=== PATIENT | female | born 1950 | race Caucasian/White ===

== ENCOUNTER 2019-04-24 13:48 | Emergency (ER) | payer MEDICARE, OTHER ==
[~2019-04-24] VITALS: Ht 170.2 cm; Wt 100.0 kg
[~2019-04-24 13:48] MED LIST: ASPI81TA52 PO; ATOR10TA PO; BUPR150T8 PO; CITA20TA28 PO; DOCU250C21 PO; METO25TA6 PO; OMEP40CA13 PO; TIOT18CA3
[2019-04-24] MEDS ORDERED: pantoprazole 40 MG vial IV ONE (14:35)
[2019-04-24] MEDS ORDERED: normal saline 1000ML IV soln IVB ONE (14:35)
[2019-04-24] MEDS ORDERED: famotidine/PF 10 mg/ml inj IV ONE (14:35)
[2019-04-24] MEDS ORDERED: ondansetron/PF 4mg/2ml inj IV ONE (14:35)
[2019-04-24 15:18] LABS: BASOPHILS # (AUTO) 0.2 X10'3 (0-0.2); HEMATOCRIT 25.6 % (35.0-45.0); HEMOGLOBIN 8.6 g/dl (12.0-16.0); LYMPHOCYTES # (AUTO) 2.7 X10'3 (1.1-4.8); MEAN CORPUSCULAR HEMOGLOBIN 30.8 PG (27.0-31.0); MEAN CORPUSCULAR HGB CONC 33.5 g/dL (33.0-36.5); MEAN PLATELET VOLUME 7.8 FL (7.4-10.4)
[2019-04-24 15:20] LABS: BASOPHILS % (AUTO) 0.9 % (0-1); EOSINOPHILS # (AUTO) 0.2 X10'3 (0-0.9); EOSINOPHILS % (AUTO) 1.5 % (0-6); LYMPHOCYTES % (AUTO) 16.8 % (21-51); MONOCYTES # (AUTO) 0.8 X10'3 (0-0.9); MONOCYTES % (AUTO) 5.2 % (2-12); NEUTROPHILS # (AUTO) 12.3 X10'3 (1.8-7.7); NEUTROPHILS % (AUTO) 75.6 % (42-75); PLATELET COUNT 332 X10'3 (140-440); RED BLOOD COUNT 2.79 X10'6 (4.20-5.60); RED CELL DISTRIBUTION WIDTH 14.8 % (11.5-14.5); WHITE BLOOD COUNT 16.2 X10'3 (4.5-11.0)
[2019-04-24 15:30] LABS: ALANINE AMINOTRANSFERASE 17 U/L (12-78); ALBUMIN 2.7 G/DL (3.4-5.0); ALBUMIN/GLOBULIN RATIO 0.7 (1.1-1.5); ALKALINE PHOSPHATASE 82 IU/L (46-116); ANION GAP 3 (8-16); ASPARTATE AMINO TRANSFERASE 14 U/L (10-37); BILIRUBIN,TOTAL 0.4 MG/DL (0.1-1.0); BLOOD UREA NITROGEN 11 MG/DL (7-18); BUN/CREATININE RATIO 13.3 (6.6-38.0); CALCIUM 8.7 MG/DL (8.5-10.1); CHLORIDE 105 MMOL/L (99-107); CREATININE 0.83 MG/DL (0.40-0.90); GLUCOSE 131 MG/DL (70-104); POTASSIUM 4.8 MMOL/L (3.5-5.1); SODIUM 140 MMOL/L (135-145); TOTAL CARBON DIOXIDE 31.6 MMOL/L (24-32); TOTAL PROTEIN 6.4 G/DL (6.4-8.2); eGFR 68 ML/MIN
[2019-04-24] MEDS ORDERED: aspirin 81mg tab.chew PO ONE (16:20)
[2019-04-24] MEDS ORDERED: HYDR-4383 PO (16:23)
[2019-04-24] MEDS ORDERED: ATOR10TA PO (16:23)
[2019-04-24] MEDS ORDERED: METO25TA6 PO (16:23)
[2019-04-24] MEDS ORDERED: ALBU18HF2 INH (16:32)
[2019-04-24] MEDS ORDERED: BENA20TA82 PO (16:33)
[2019-04-24] MEDS ORDERED: MELO-100 PO (16:38)
[2019-04-24] MEDS ORDERED: BUPR150T6 PO (16:57)
[2019-04-24] MEDS ORDERED: NITR0.4T48 PO (17:02)
[2019-04-24 17:17] VITALS: BP 107/69
--- NOTE | 2019-04-24 17:21 | NUR ---
Dr. Hsieh spoke with pts. Batch Tester and pt will go home if her repeat trop. is neg.
--- NOTE | 2019-04-24 17:32 | NUR ---
DRAW [address] OVALLE PT PROBABLY WILL BE ABLE TO GO HOME IF TROP IS NORMAL
--- NOTE | 2019-04-24 17:45 | NUR ---
PT STATES SHE ALREADY TOOK HER ASPIRIN TODAY . DECLINED ASA MEDICATION ORDER.
[2019-04-24] MEDS ORDERED: ONDA4TAB6 PO (18:01)
== END 2019-04-24 18:24 | disposition home or self-care (01) ==
LOC: ER 13:49
DX: L76.32 Postprocedural hematoma of skin and subcutaneous tissue following other procedure (principal); K29.70 Gastritis, unspecified, without bleeding; R11.2 Nausea with vomiting, unspecified; R79.89 Other specified abnormal findings of blood chemistry; I25.10 Atherosclerotic heart disease of native coronary artery without angina pectoris; J44.9 Chronic obstructive pulmonary disease, unspecified; Z88.8 Allergy status to other drugs, medicaments and biological substances; Z95.1 Presence of aortocoronary bypass graft; Z79.82 Long term (current) use of aspirin; Z79.899 Other long term (current) drug therapy
CPT/HCPCS: 36415; 71045; 80053; 83735; 83880; 84484; 85025; 93005; 96361; 96374; 96375; 99285; C9113; J2405; J3490; J7030

== ENCOUNTER 2019-04-26 13:44 | Emergency (ER) | payer MEDICARE, OTHER ==
[~2019-04-26] VITALS: Ht 170.2 cm; Wt 95.0 kg
[~2019-04-26 13:44] MED LIST changes: +ALBU18HF2 INH; +BENA20TA82 PO; +BUPR150T6 PO; -BUPR150T8 PO; +HYDR-4383 PO; +MELO-100 PO; +NITR0.4T48 PO; +ONDA4TAB6 PO; -TIOT18CA3
[2019-04-26 14:16] LABS: BASOPHILS % (AUTO) 0.2 % (0-1); EOSINOPHILS # (AUTO) 0.4 X10'3 (0-0.9); EOSINOPHILS % (AUTO) 2.8 % (0-6); HEMATOCRIT 24.8 % (35.0-45.0); HEMOGLOBIN 7.9 g/dl (12.0-16.0); LYMPHOCYTES # (AUTO) 2.1 X10'3 (1.1-4.8); LYMPHOCYTES % (AUTO) 14.6 % (21-51); MEAN CORPUSCULAR HEMOGLOBIN 29.8 PG (27.0-31.0); MEAN CORPUSCULAR VOLUME 93.1 FL (78-98); MEAN PLATELET VOLUME 6.8 FL (7.4-10.4); MONOCYTES # (AUTO) 1.2 X10'3 (0-0.9); MONOCYTES % (AUTO) 8.7 % (2-12); NEUTROPHILS # (AUTO) 10.5 X10'3 (1.8-7.7); NEUTROPHILS % (AUTO) 73.7 % (42-75); PLATELET COUNT 423 X10'3 (140-440); RED BLOOD COUNT 2.67 X10'6 (4.20-5.60); WHITE BLOOD COUNT 14.2 X10'3 (4.5-11.0)
[2019-04-26 14:34] LABS: ALANINE AMINOTRANSFERASE 34 U/L (12-78); ALBUMIN 2.6 G/DL (3.4-5.0); ALBUMIN/GLOBULIN RATIO 0.6 (1.1-1.5); ALKALINE PHOSPHATASE 106 IU/L (46-116); ANION GAP 2 (8-16); ASPARTATE AMINO TRANSFERASE 22 U/L (10-37); BILIRUBIN,TOTAL 0.3 MG/DL (0.1-1.0); BLOOD UREA NITROGEN 8 MG/DL (7-18); BUN/CREATININE RATIO 10.4 (6.6-38.0); CHLORIDE 105 MMOL/L (99-107); CREATININE 0.77 MG/DL (0.40-0.90); GLUCOSE 97 MG/DL (70-104); POTASSIUM 4.5 MMOL/L (3.5-5.1); SODIUM 140 MMOL/L (135-145); TOTAL CARBON DIOXIDE 33.3 MMOL/L (24-32); TOTAL PROTEIN 6.7 G/DL (6.4-8.2); eGFR 75 ML/MIN
--- NOTE | 2019-04-26 16:03 | NUR ---
OXYGEN DELIVERY ARRANGED BY DC AWARD MACHINE OPERATOR. TO BE DELIVERED BY [facility] TO BEDSIDE. I DISCUSSED WITH PATIENT AND DAUGHTER, THAT THEY NEED TO FOLLOW UP WITH PCP TEE. DAUGHTER WAS CALLING JENIFER TAYLOR TO SCHEDULE APPOINTMENT. PATIENT ALSO HAS SCHEDULED APPOINTMENT WITH DR LINN ON 05/07, AND DR GOODWIN ON 05/11.
[2019-04-26 16:43] VITALS: BP 106/75
[2019-04-26] MEDS ORDERED: ipratropium/albuterol 3ml nebule NEB ONE (16:55)
== END 2019-04-26 17:40 | disposition home or self-care (01) ==
LOC: ER 13:44
DX: J44.9 Chronic obstructive pulmonary disease, unspecified (principal); I25.10 Atherosclerotic heart disease of native coronary artery without angina pectoris; F17.200 Nicotine dependence, unspecified, uncomplicated; Z95.1 Presence of aortocoronary bypass graft; Z88.8 Allergy status to other drugs, medicaments and biological substances; Z79.82 Long term (current) use of aspirin; Z79.899 Other long term (current) drug therapy
CPT/HCPCS: 36415; 71045; 80053; 84484; 85025; 93005; 99285

== ENCOUNTER 2019-05-31 11:12 | Inpatient (IN) | payer MEDICARE, OTHER ==
[~2019-05-31] VITALS: Ht 170.2 cm; Wt 86.8 kg
[~2019-05-31 11:12] MED LIST changes: +APIX5TAB3 PO; +CARCD120C PO; +LACT1CAP26 PO; +LEVO500T2 PO; -ONDA4TAB6 PO; +PRED20TA PO
[2019-05-31 11:46] LABS: BASOPHILS # (AUTO) 0.1 X10'3 (0-0.2); EOSINOPHILS # (AUTO) 0.4 X10'3 (0-0.9); HEMOGLOBIN 10.8 g/dl (12.0-16.0); LYMPHOCYTES # (AUTO) 2.2 X10'3 (1.1-4.8); MEAN PLATELET VOLUME 7.8 FL (7.4-10.4); NEUTROPHILS # (AUTO) 6.3 X10'3 (1.8-7.7)
[2019-05-31 11:47] LABS: BASOPHILS % (AUTO) 1.2 % (0-1); EOSINOPHILS % (AUTO) 3.6 % (0-6); HEMATOCRIT 33.4 % (35.0-45.0); LYMPHOCYTES % (AUTO) 22.4 % (21-51); MEAN CORPUSCULAR HEMOGLOBIN 29.3 PG (27.0-31.0); MEAN CORPUSCULAR HGB CONC 32.4 g/dL (33.0-36.5); MEAN CORPUSCULAR VOLUME 90.5 FL (78-98); MONOCYTES # (AUTO) 0.8 X10'3 (0-0.9); NEUTROPHILS % (AUTO) 64.8 % (42-75); PLATELET COUNT 618 X10'3 (140-440); RED CELL DISTRIBUTION WIDTH 16.5 % (11.5-14.5); WHITE BLOOD COUNT 9.7 X10'3 (4.5-11.0)
[2019-05-31] MEDS ORDERED: normal saline 1000ml 1,000 ML IV ONE (11:56)
[2019-05-31 12:01] LABS: PARTIAL THROMBOPLASTIN TIME 25 SECONDS (22-32)
[2019-05-31 12:02] LABS: ALANINE AMINOTRANSFERASE 18 U/L (12-78); ALBUMIN 2.6 G/DL (3.4-5.0); ALBUMIN/GLOBULIN RATIO 0.5 (1.1-1.5); ALKALINE PHOSPHATASE 136 IU/L (46-116); ANION GAP 5 (8-16); ASPARTATE AMINO TRANSFERASE 16 U/L (10-37); BILIRUBIN,TOTAL 0.2 MG/DL (0.1-1.0); BLOOD UREA NITROGEN 8 MG/DL (7-18); BUN/CREATININE RATIO 10.7 (6.6-38.0); C-REACTIVE PROTEIN 5.54 MG/DL (0.0-0.5); CALCIUM 8.6 MG/DL (8.5-10.1); CHLORIDE 103 MMOL/L (99-107); CREATININE 0.75 MG/DL (0.40-0.90); GLUCOSE 111 MG/DL (70-104); MAGNESIUM 1.9 MG/DL (1.5-2.4); SODIUM 140 MMOL/L (135-145); TOTAL CARBON DIOXIDE 32.2 MMOL/L (24-32); TOTAL PROTEIN 7.4 G/DL (6.4-8.2); eGFR 77 ML/MIN
[2019-05-31] MEDS ORDERED: acetaminophen 325mg tablet PO ONE (12:20)
--- NOTE | 2019-05-31 13:00 | NUR ---
DAUGHTER IN[place] CALLED THEY ARE WORRIED ABOUT CONFUSION AND HALLICINATING SINCE THE SURGERY. REQUESTED HEAD CT. WE ARE RUNNING TESTS AT THIS TIME. ALESSIO [phone] ENDER (SON) [phone]
[2019-05-31] MEDS ORDERED: iohexol 300mg/ml 100ml inj. ONE (13:21)
--- NOTE | 2019-05-31 13:23 | NUR ---
STERNAL WOUND CULTURE OBTAINED
[2019-05-31 13:30] LABS: CLARITY,URINE SLIGHTLY CLOUDY (Clear); COLOR,URINE YELLOW (Yellow); GLUCOSE, URINE NEGATIVE (Neg); KETONES,URINE NEGATIVE (Neg); LEUKOCYTE ESTERASE ,URINE NEGATIVE (Neg); NITRITES, URINE NEGATIVE (Neg); OCCULT BLOOD,URINE LARGE (Neg); PROTEIN,URINE NEGATIVE (Neg); UROBILINOGEN,URINE 0.2 E.U/dL (0.2-1.0)
[2019-05-31 13:31] LABS: UA COLLECTION TYPE STRAIGHT CATH
[2019-05-31 13:36] LABS: SQUAMOUS EPITHELIAL CELL,UR MANY /LPF (FEW)
[2019-05-31 13:37] LABS: MUCUS STRANDS MODERATE /LPF (Neg)
[2019-05-31 13:38] LABS: BACTERIA,URINE 1+ /HPF (Neg); RBC,URINE 50-100 /HPF (0-2); WBC,URINE 0-4 /HPF (0-4)
[2019-05-31] MEDS ORDERED: vancomycin/NS 1 GM ADD-VANTAGE 250 ML IV ONE (15:10)
[2019-05-31] MEDS ORDERED: morphine 2 MG/ML inj. syringe IV PRN ×2 (15:20)
[2019-05-31] MEDS ORDERED: mag hydrox/Alum hydrox/simeth 30ml oral suspension PO PRN (15:20)
[2019-05-31] MEDS ORDERED: ondansetron/PF 4mg/2ml inj IV PRN (15:20)
[2019-05-31] MEDS ORDERED: acetaminophen 325mg tablet PO PRN (15:20)
[2019-05-31] MEDS ORDERED: magnesium hydroxide 30ml (MOM) UD suspension PO PRN (15:20)
[2019-05-31] MEDS: normal saline 1000ml 1,000 ML IV SCH (16:10)
[2019-05-31] MEDS: VANCOmycin 1250MG/NS 250ml Bag 250 ML IV SCH (16:10)
--- NOTE | 2019-05-31 18:39 | NUR ---
SPOKE WITH PT FAMILY MEMBER ENDER REGARDING PT HOME MEDICATION LIST FOR RECONCILLIATION. PER FAMILY, NO NEW RX HAVE CHANGED AND 2 NEW MEDS ARE LISTED IN THE EXTERNAL MED REC. PT FAMILY CONFIRMED THESE ARE ACCURATE. WILL COMPLETE MED REC BASED OFF OF FAMILY INFORMATION.
[2019-05-31] MEDS ORDERED: HCTZ25T PO (18:41)
[2019-05-31] MEDS ORDERED: METO-411 PO (18:41)
[2019-05-31 19:30] VITALS: BP 142/82
[2019-05-31] MEDS: heparin, porcine 5000 units/ml vial SQ SCH (20:33)
--- NOTE | 2019-05-31 21:24 | NUR ---
Report given to Jessica, christopher, surgical. I reiterated the DNR order with Pt and she reproted to me that she wants full resuscitation and stated she thought that the doctor (Dr. Goodson) was talking about her being kept alive (feeding tube/ventilator) for a length of time. States if her heart were to stop she wants us to save her life. I spoke with Dr. Hsieh about this and he will visit the Pt later. Prudent updated of this situation.
[2019-05-31 23:00] VITALS: BP 157/92
[2019-06-01] VITALS (7 sets, daily range): BP systolic 133–165; BP diastolic 55–94
[2019-06-01] MEDS: normal saline 1000ml 1,000 ML IV SCH ×3 (01:32→21:20)
[2019-06-01] MEDS: VANCOmycin 1250MG/NS 250ml Bag 250 ML IV SCH ×2 (05:48→16:04)
--- NOTE | 2019-06-01 06:06 | NUR ---
Patient in room PCU 3014. I have received report from Melissa HA / ER and had the opportunity to ask questions and assume patient care. Addendum: 06/01/19 at 0607 by Anshu Ortiz RN Amend time/date to 05/30
[2019-06-01 06:08] LABS: BASOPHILS % (AUTO) 0.5 % (0-1); EOSINOPHILS # (AUTO) 0.3 X10'3 (0-0.9); EOSINOPHILS % (AUTO) 3.7 % (0-6); HEMATOCRIT 30.1 % (35.0-45.0); HEMOGLOBIN 9.6 g/dl (12.0-16.0); LYMPHOCYTES # (AUTO) 1.6 X10'3 (1.1-4.8); LYMPHOCYTES % (AUTO) 20.1 % (21-51); MEAN CORPUSCULAR HEMOGLOBIN 28.9 PG (27.0-31.0); MEAN CORPUSCULAR VOLUME 90.2 FL (78-98); MEAN PLATELET VOLUME 7.8 FL (7.4-10.4); MONOCYTES # (AUTO) 0.8 X10'3 (0-0.9); MONOCYTES % (AUTO) 10.3 % (2-12); NEUTROPHILS # (AUTO) 5.2 X10'3 (1.8-7.7); NEUTROPHILS % (AUTO) 65.4 % (42-75); PLATELET COUNT 604 X10'3 (140-440); RED BLOOD COUNT 3.34 X10'6 (4.20-5.60); RED CELL DISTRIBUTION WIDTH 17.1 % (11.5-14.5)
--- NOTE | 2019-06-01 06:13 | NUR ---
Problems reprioritized. Patient report given, questions answered & plan of care reviewed with Yun HA.
--- NOTE | 2019-06-01 06:15 | NUR ---
Patient in room PCU 3014A. I have received report from Beka HA and had the opportunity to ask questions and assume patient care. Patient laying in bed, eyes closed, no signs of distress, will continue to monitor.
[2019-06-01 06:23] LABS: ALBUMIN 2.1 G/DL (3.4-5.0); ANION GAP 4 (8-16); BLOOD UREA NITROGEN 9 MG/DL (7-18); BUN/CREATININE RATIO 13.6 (6.6-38.0); CALCIUM 8.8 MG/DL (8.5-10.1); CHLORIDE 106 MMOL/L (99-107); CREATININE 0.66 MG/DL (0.40-0.90); GLUCOSE 72 MG/DL (70-104); POTASSIUM 3.9 MMOL/L (3.5-5.1); SODIUM 145 MMOL/L (135-145); eGFR 89 ML/MIN
[2019-06-01] MEDS ORDERED: SIMV-45 PO (08:04)
[2019-06-01] MEDS: heparin, porcine 5000 units/ml vial SQ SCH (08:39)
[2019-06-01] MEDS ORDERED: nitroGLYCERIN 0.4mg SUBLingual tab SL PRN (09:00)
[2019-06-01] MEDS ORDERED: docusate sod 250mg capsule PO PRN (09:00)
[2019-06-01] MEDS: diltiazem CD 120mg capsule (once-daily) PO SCH (10:55)
[2019-06-01] MEDS: lisinopril 20mg tablet PO SCH (10:55)
--- NOTE | 2019-06-01 13:46 | NUR ---
PAGER ID: [phone] MESSAGE: Yun arrington [phone]. RE Param Pena 3014A. Pt c/o CP, 04/23, unclear if incisional or CP. EKG obtained, no STEMI by ED doc. VS stable: 146/77, HR 96, RR 18, SpO2 92% on 2L.
--- NOTE | 2019-06-01 14:23 | NUR ---
DM/malnutrition consult: Patient with A1c 6.9, DM education not warranted at this time. Pt admit with AMS, unable to give reliable hx, and confused at baseline per H&P. Pt with scaled wt hx 94-98 kg last month, current documented wt is 86.82 kg however is pt stated. Pt currently on a heart healthy diet documented with 100% PO intake first meal. Pt with no documented decrease in muscle strength or edema. Per ED report pt appears well developed and well nourished. Pt currently doesn't not meet criteria for malnutrition. Will continue to follow. Addendum: 06/01/19 at [address] Amended: Links added.
--- NOTE | 2019-06-01 16:10 | NUR ---
PAGER ID: [phone] MESSAGE: Yun x [phone]. RE Param Pena 3014A. Pt requesting Tylenol 325mg for pain. Can I have order for this? Also, do you want a wound care c/s for her? Thanks!
[2019-06-01] MEDS ORDERED: acetaminophen 325mg tablet PO PRN (16:15)
--- NOTE | 2019-06-01 18:16 | NUR ---
Problems reprioritized. Patient report given, questions answered & plan of care reviewed with Beka RN. Patient sitting up in bed, no signs of distress.
--- NOTE | 2019-06-01 18:17 | NUR ---
Problems reprioritized. Patient report given, questions answered & plan of care reviewed with Yun HA.
[2019-06-01] MEDS ORDERED: lisinopril 20mg tablet PO ONE (19:20)
[2019-06-01] MEDS: apixaban 5mg tablet PO SCH (19:42)
[2019-06-01] MEDS: lactobacillus rhamnosus 10,000 MMU CELLS/CAPSULE PO SCH (19:43)
[2019-06-02] VITALS (7 sets, daily range): BP systolic 149–178; BP diastolic 62–88
[2019-06-02] MEDS ORDERED: VANCOMYCIN LEVEL IV ONE (03:30)
[2019-06-02] MEDS: VANCOmycin 1250MG/NS 250ml Bag 250 ML IV SCH (03:32)
[2019-06-02 04:05] LABS: BASOPHILS # (AUTO) 0.1 X10'3 (0-0.2); BASOPHILS % (AUTO) 1.4 % (0-1); LYMPHOCYTES # (AUTO) 2.6 X10'3 (1.1-4.8); MEAN PLATELET VOLUME 7.9 FL (7.4-10.4); NEUTROPHILS # (AUTO) 4.7 X10'3 (1.8-7.7); WHITE BLOOD COUNT 8.7 X10'3 (4.5-11.0)
[2019-06-02 04:06] LABS: EOSINOPHILS # (AUTO) 0.4 X10'3 (0-0.9); EOSINOPHILS % (AUTO) 4.4 % (0-6); HEMATOCRIT 28.7 % (35.0-45.0); HEMOGLOBIN 9.1 g/dl (12.0-16.0); LYMPHOCYTES % (AUTO) 30.1 % (21-51); MEAN CORPUSCULAR HEMOGLOBIN 28.5 PG (27.0-31.0); MEAN CORPUSCULAR HGB CONC 31.5 g/dL (33.0-36.5); MEAN CORPUSCULAR VOLUME 90.4 FL (78-98); MONOCYTES # (AUTO) 0.9 X10'3 (0-0.9); MONOCYTES % (AUTO) 10.8 % (2-12); NEUTROPHILS % (AUTO) 53.3 % (42-75); PLATELET COUNT 648 X10'3 (140-440); RED BLOOD COUNT 3.18 X10'6 (4.20-5.60); RED CELL DISTRIBUTION WIDTH 17.3 % (11.5-14.5)
[2019-06-02 04:20] LABS: ANION GAP 3 (8-16); BLOOD UREA NITROGEN 13 MG/DL (7-18); BUN/CREATININE RATIO 18.8 (6.6-38.0); CHLORIDE 107 MMOL/L (99-107); CREATININE 0.69 MG/DL (0.40-0.90); GLUCOSE 105 MG/DL (70-104); POTASSIUM 3.5 MMOL/L (3.5-5.1); SODIUM 141 MMOL/L (135-145); TOTAL CARBON DIOXIDE 30.7 MMOL/L (24-32); VANCOMYCIN,TROUGH 13.9 UG/ML (6.0-14.0); eGFR 85 ML/MIN
--- NOTE | 2019-06-02 06:00 | NUR ---
3014A - Sharee Pena - Episode of HTN 172 SBP - want to admin 0800 AM lisinopril dose early? [phone] Beka AH Addendum: 06/02/19 at 0616 by Anshu Ortiz RN Discussed blood pressure with Dr. Hsieh - he said it is okay the lisinopril to be administered in 1-2 hours as it is currently scheduled.
--- NOTE | 2019-06-02 06:32 | NUR ---
Problems reprioritized. Patient report given, questions answered & plan of care reviewed with Haydee HA.
--- NOTE | 2019-06-02 06:40 | NUR ---
Patient in room PCU 3014. I have received report from Beka HA and had the opportunity to ask questions and assume patient care.
[2019-06-02] MEDS: normal saline 1000ml 1,000 ML IV SCH (07:20)
[2019-06-02] MEDS: aspirin 81mg tablet.DR PO SCH (07:51)
[2019-06-02] MEDS: diltiazem CD 120mg capsule (once-daily) PO SCH (07:52)
[2019-06-02] MEDS: lactobacillus rhamnosus 10,000 MMU CELLS/CAPSULE PO SCH ×2 (07:52→20:55)
[2019-06-02] MEDS: citalopram 20mg tablet PO SCH (07:52)
[2019-06-02] MEDS: buPROPion SR 150mg tablet PO SCH (07:52)
[2019-06-02] MEDS: pantoprazole 40mg Tablet.DR PO SCH (07:52)
[2019-06-02] MEDS: apixaban 5mg tablet PO SCH ×2 (07:53→20:55)
[2019-06-02] MEDS: lisinopril 20mg tablet PO SCH (07:53)
[2019-06-02] MEDS: ceFAZolin 1GM/D5W- ADD-VANTAGE 50 ML IV SCH ×2 (10:00→16:07)
--- NOTE | 2019-06-02 10:21 | NUR ---
received orders to start physical therapy per dr. etienne
--- NOTE | 2019-06-02 14:55 | NUR ---
physical therapy concerned if patient requires sternal precaution educations, clarified w/ dr. parikh and instructed to continue to remind patient but does not need physical therapy to focus on sternal precaution education.
[2019-06-02] MEDS ORDERED: VANCOMYCIN 1,500MG inj. 1,500 MG in normal saline 500ml IV soln 500 ML IV SCH (16:00)
--- NOTE | 2019-06-02 18:06 | NUR ---
Problems reprioritized. Patient report given, questions answered & plan of care reviewed with Beka RN.
[2019-06-03] VITALS (7 sets, daily range): BP systolic 125–171; BP diastolic 68–88
--- NOTE | 2019-06-03 02:36 | NUR ---
Page Sent - To Dr. Hsieh - he returned page and agreed to one time dose of lisinopril for current high blood pressure. promotional table spacer PAGER ID: [phone] MESSAGE: [id number] - Sharee Pena - HTN episode again like last night 167/84 want me to admin one time lisinopril 20mg like previous night? [phone] Beka HA
[2019-06-03] MEDS ORDERED: lisinopril 20mg tablet PO ONE (02:40)
[2019-06-03 06:10] LABS: BASOPHILS # (AUTO) 0.2 X10'3 (0-0.2); BASOPHILS % (AUTO) 2.4 % (0-1); EOSINOPHILS # (AUTO) 0.3 X10'3 (0-0.9); EOSINOPHILS % (AUTO) 3.5 % (0-6); HEMATOCRIT 28.7 % (35.0-45.0); HEMOGLOBIN 9.3 g/dl (12.0-16.0); LYMPHOCYTES # (AUTO) 2.2 X10'3 (1.1-4.8); LYMPHOCYTES % (AUTO) 23.6 % (21-51); MEAN CORPUSCULAR HEMOGLOBIN 29.1 PG (27.0-31.0); MEAN CORPUSCULAR HGB CONC 32.5 g/dL (33.0-36.5); MEAN CORPUSCULAR VOLUME 89.3 FL (78-98); MEAN PLATELET VOLUME 7.4 FL (7.4-10.4); MONOCYTES # (AUTO) 0.9 X10'3 (0-0.9); MONOCYTES % (AUTO) 9.5 % (2-12); NEUTROPHILS # (AUTO) 5.7 X10'3 (1.8-7.7); PLATELET COUNT 691 X10'3 (140-440); RED BLOOD COUNT 3.22 X10'6 (4.20-5.60); WHITE BLOOD COUNT 9.4 X10'3 (4.5-11.0)
--- NOTE | 2019-06-03 06:10 | NUR ---
Patient in room PCU 3014. I have received report from Beka HA and had the opportunity to ask questions and assume patient care.
--- NOTE | 2019-06-03 06:24 | NUR ---
Problems reprioritized. Patient report given, questions answered & plan of care reviewed with Anoop HA
[2019-06-03 06:45] LABS: ALBUMIN 2.1 G/DL (3.4-5.0); ANION GAP 3 (8-16); BLOOD UREA NITROGEN 8 MG/DL (7-18); BUN/CREATININE RATIO 11.4 (6.6-38.0); CALCIUM 9.2 MG/DL (8.5-10.1); CHLORIDE 106 MMOL/L (99-107); GLUCOSE 106 MG/DL (70-104); POTASSIUM 3.4 MMOL/L (3.5-5.1); SODIUM 143 MMOL/L (135-145); eGFR 83 ML/MIN
[2019-06-03] MEDS: K and/or MAG REPLACEMENT MC SCH ×2 (08:00→20:00)
[2019-06-03] MEDS: lactobacillus rhamnosus 10,000 MMU CELLS/CAPSULE PO SCH ×2 (08:13→20:17)
[2019-06-03] MEDS: citalopram 20mg tablet PO SCH (08:13)
[2019-06-03] MEDS: buPROPion SR 150mg tablet PO SCH (08:13)
[2019-06-03] MEDS: ceFAZolin 1GM/D5W- ADD-VANTAGE 50 ML IV SCH ×3 (08:13→15:54)
[2019-06-03] MEDS: diltiazem CD 120mg capsule (once-daily) PO SCH (08:13)
[2019-06-03] MEDS: apixaban 5mg tablet PO SCH ×2 (08:13→20:19)
[2019-06-03] MEDS: aspirin 81mg tablet.DR PO SCH (08:13)
[2019-06-03] MEDS: lisinopril 20mg tablet PO SCH (08:15)
[2019-06-03] MEDS: pantoprazole 40mg Tablet.DR PO SCH (08:21)
[2019-06-03] MEDS ORDERED: HYDROchlorothiazide 25mg tablet PO ONE (10:10)
[2019-06-03] MEDS ORDERED: magnesium Cl slow-release 64mg tablet PO PRN (11:25)
[2019-06-03] MEDS ORDERED: potassium Cl 20 mEq SR tablet PO PRN (11:25)
[2019-06-03] MEDS ORDERED: potassium CL 10mEq/100ml bag 100 ML IV PRN (11:25)
[2019-06-03] MEDS: potassium Cl 20 mEq SR tablet PO PRN ×3 (11:48→20:18)
--- NOTE | 2019-06-03 18:39 | NUR ---
Patient in room U 3014. I have received report from Florencio HERNANDEZ and had the opportunity to ask questions and assume patient care. Addendum: 06/03/19 at 1841 by Mallorie Davalos RN Problems reprioritized. Patient report given, questions answered & plan of care reviewed with Florencio Hernandez.
--- NOTE | 2019-06-03 18:54 | NUR ---
Patient in room PCU 3014b. I have received report from DILCIA Martinez and had the opportunity to ask questions and assume patient care. Patient awake for bedside report and stable at this time. On 3L NC and saline locked. Will continue to monitor closely.
[2019-06-03] MEDS: HYDROcodone/acetaminophen 5mg/325mg tablet PO PRN (20:18)
[2019-06-04] MEDS: ceFAZolin 1GM/D5W- ADD-VANTAGE 50 ML IV SCH ×3 (00:27→16:00)
[2019-06-04 03:00] VITALS: BP 153/89
[2019-06-04] MEDS ORDERED: VANCOMYCIN LEVEL IV ONE (03:30)
[2019-06-04 05:23] LABS: BASOPHILS # (AUTO) 0.1 X10'3 (0-0.2); HEMOGLOBIN 9.8 g/dl (12.0-16.0); LYMPHOCYTES # (AUTO) 2.2 X10'3 (1.1-4.8); MEAN PLATELET VOLUME 7.6 FL (7.4-10.4); MONOCYTES % (AUTO) 11.1 % (2-12)
[2019-06-04 05:28] LABS: BASOPHILS % (AUTO) 1.3 % (0-1); EOSINOPHILS # (AUTO) 0.4 X10'3 (0-0.9); EOSINOPHILS % (AUTO) 4.3 % (0-6); HEMATOCRIT 30.9 % (35.0-45.0); LYMPHOCYTES % (AUTO) 24.4 % (21-51); MEAN CORPUSCULAR HEMOGLOBIN 28.5 PG (27.0-31.0); MEAN CORPUSCULAR HGB CONC 31.7 g/dL (33.0-36.5); MEAN CORPUSCULAR VOLUME 89.9 FL (78-98); NEUTROPHILS # (AUTO) 5.4 X10'3 (1.8-7.7); NEUTROPHILS % (AUTO) 58.9 % (42-75); PLATELET COUNT 776 X10'3 (140-440); RED BLOOD COUNT 3.43 X10'6 (4.20-5.60); RED CELL DISTRIBUTION WIDTH 17.3 % (11.5-14.5); WHITE BLOOD COUNT 9.1 X10'3 (4.5-11.0)
[2019-06-04 05:57] LABS: ALBUMIN 2.1 G/DL (3.4-5.0); ANION GAP 3 (8-16); BLOOD UREA NITROGEN 7 MG/DL (7-18); BUN/CREATININE RATIO 9.3 (6.6-38.0); CALCIUM 9.7 MG/DL (8.5-10.1); CHLORIDE 105 MMOL/L (99-107); CREATININE 0.75 MG/DL (0.40-0.90); GLUCOSE 105 MG/DL (70-104); POTASSIUM 4.1 MMOL/L (3.5-5.1); SODIUM 145 MMOL/L (135-145); TOTAL CARBON DIOXIDE 37.5 MMOL/L (24-32); eGFR 77 ML/MIN
[2019-06-04 06:00] VITALS: BP 131/111
--- NOTE | 2019-06-04 06:10 | NUR ---
Problems reprioritized. Patient report given, questions answered & plan of care reviewed with DILCIA Martinez.
--- NOTE | 2019-06-04 06:12 | NUR ---
Patient in room PCU 3014. I have received report from Florencio HA and had the opportunity to ask questions and assume patient care.
[2019-06-04] MEDS: diltiazem CD 120mg capsule (once-daily) PO SCH (07:06)
[2019-06-04] MEDS: aspirin 81mg tablet.DR PO SCH (07:07)
[2019-06-04] MEDS: apixaban 5mg tablet PO SCH ×2 (07:07→20:47)
[2019-06-04] MEDS: pantoprazole 40mg Tablet.DR PO SCH (07:07)
[2019-06-04] MEDS: HYDROchlorothiazide 12.5mg capsule PO SCH (07:07)
[2019-06-04] MEDS: buPROPion SR 150mg tablet PO SCH (07:07)
[2019-06-04] MEDS: lisinopril 20mg tablet PO SCH (07:07)
[2019-06-04] MEDS: citalopram 20mg tablet PO SCH (07:07)
[2019-06-04] MEDS: lactobacillus rhamnosus 10,000 MMU CELLS/CAPSULE PO SCH ×2 (07:07→20:47)
[2019-06-04] MEDS: K and/or MAG REPLACEMENT MC SCH ×2 (07:12→20:00)
--- NOTE | 2019-06-04 08:45 | NUR ---
Problems reprioritized. Patient report given, questions answered & plan of care reviewed with Chely HA.
--- NOTE | 2019-06-04 09:00 | NUR ---
Patient in room PCU 3014. I have received report from christopher sow and had the opportunity to ask questions and assume patient care.
[2019-06-04 09:11] LABS: GIANT PLATELET FEW; PLATELET ESTIMATE INCREASED
[2019-06-04 11:00] VITALS: BP 97/65
[2019-06-04 15:00] VITALS: BP 134/63
--- NOTE | 2019-06-04 18:22 | NUR ---
Problems reprioritized. Patient report given, questions answered & plan of care reviewed with DILCIA francisco.
--- NOTE | 2019-06-04 18:43 | NUR ---
Patient in room PCU 3014B. I have received report from DILCIA Mo and had the opportunity to ask questions and assume patient care. Patient awakek for bedside report. On 2.5L NC, saline locked, and stable at this time. Will continue to monitor closely.
[2019-06-04 18:54] VITALS: BP 120/70
[2019-06-04] MEDS: HYDROcodone/acetaminophen 5mg/325mg tablet PO PRN (20:47)
[2019-06-04 23:00] VITALS: BP 131/65
[2019-06-05] VITALS (7 sets, daily range): BP systolic 110–130; BP diastolic 49–77
[2019-06-05] MEDS: ceFAZolin 1GM/D5W- ADD-VANTAGE 50 ML IV SCH ×3 (00:57→16:44)
[2019-06-05 05:04] LABS: BASOPHILS # (AUTO) 0.1 X10'3 (0-0.2); EOSINOPHILS # (AUTO) 0.3 X10'3 (0-0.9); HEMOGLOBIN 9.8 g/dl (12.0-16.0); LYMPHOCYTES # (AUTO) 2.5 X10'3 (1.1-4.8); MEAN PLATELET VOLUME 7.6 FL (7.4-10.4)
[2019-06-05 05:07] LABS: BASOPHILS % (AUTO) 1.2 % (0-1); EOSINOPHILS % (AUTO) 3.1 % (0-6); HEMATOCRIT 31.3 % (35.0-45.0); LYMPHOCYTES % (AUTO) 24.2 % (21-51); MEAN CORPUSCULAR HEMOGLOBIN 28.1 PG (27.0-31.0); MEAN CORPUSCULAR HGB CONC 31.3 g/dL (33.0-36.5); MEAN CORPUSCULAR VOLUME 89.8 FL (78-98); MONOCYTES # (AUTO) 1.1 X10'3 (0-0.9); MONOCYTES % (AUTO) 10.8 % (2-12); NEUTROPHILS # (AUTO) 6.4 X10'3 (1.8-7.7); NEUTROPHILS % (AUTO) 60.7 % (42-75); PLATELET COUNT 721 X10'3 (140-440); RED BLOOD COUNT 3.49 X10'6 (4.20-5.60); RED CELL DISTRIBUTION WIDTH 17.1 % (11.5-14.5); WHITE BLOOD COUNT 10.5 X10'3 (4.5-11.0)
[2019-06-05 05:12] LABS: ALBUMIN 2.1 G/DL (3.4-5.0); ANION GAP 0 (8-16); BLOOD UREA NITROGEN 9 MG/DL (7-18); CALCIUM 9.4 MG/DL (8.5-10.1); CHLORIDE 104 MMOL/L (99-107); CREATININE 0.75 MG/DL (0.40-0.90); GLUCOSE 98 MG/DL (70-104); SODIUM 141 MMOL/L (135-145); TOTAL CARBON DIOXIDE 37.3 MMOL/L (24-32); eGFR 77 ML/MIN
--- NOTE | 2019-06-05 06:12 | NUR ---
Problems reprioritized. Patient report given, questions answered & plan of care reviewed with DILCIA RUIZ AND DILCIA REYES.
[2019-06-05] MEDS: aspirin 81mg tablet.DR PO SCH (07:28)
[2019-06-05] MEDS: lactobacillus rhamnosus 10,000 MMU CELLS/CAPSULE PO SCH ×2 (07:28→19:30)
[2019-06-05] MEDS: diltiazem CD 120mg capsule (once-daily) PO SCH (07:28)
[2019-06-05] MEDS: citalopram 20mg tablet PO SCH (07:28)
[2019-06-05] MEDS: apixaban 5mg tablet PO SCH ×2 (07:28→19:31)
[2019-06-05] MEDS: HYDROchlorothiazide 12.5mg capsule PO SCH (07:28)
[2019-06-05] MEDS: pantoprazole 40mg Tablet.DR PO SCH (07:29)
[2019-06-05] MEDS: lisinopril 20mg tablet PO SCH (07:29)
[2019-06-05] MEDS: buPROPion SR 150mg tablet PO SCH (07:29)
[2019-06-05] MEDS: K and/or MAG REPLACEMENT MC SCH ×2 (08:00→19:09)
[2019-06-05 09:52] LABS: LARGE PLATELETS FEW; PLATELET ESTIMATE INCREASED
[2019-06-05] MEDS ORDERED: lactose-reduced food (Ensure Enlive) - 237ml bottle PO SCH (13:00)
--- NOTE | 2019-06-05 18:13 | NUR ---
Patient in room PCU 3014B. I have received report from DILCIA Olson and had the opportunity to ask questions and assume patient care. Patient awake for bedside report and stable at this time. Will continue to monitor closely.
--- NOTE | 2019-06-05 18:26 | NUR ---
Problems reprioritized. Patient report given, questions answered & plan of care reviewed with DILCIA HEIN.
[2019-06-05] MEDS: HYDROcodone/acetaminophen 5mg/325mg tablet PO PRN (19:30)
[2019-06-06] MEDS: ceFAZolin 1GM/D5W- ADD-VANTAGE 50 ML IV SCH ×2 (00:32→07:37)
[2019-06-06 03:00] VITALS: BP 103/52
[2019-06-06 06:00] VITALS: BP 119/66
--- NOTE | 2019-06-06 06:21 | NUR ---
Problems reprioritized. Patient report given, questions answered & plan of care reviewed with DILCIA LAURENT.
--- NOTE | 2019-06-06 06:28 | NUR ---
Patient in room PCU 3014. I have received report from DILCIA Matias and had the opportunity to ask questions and assume patient care.
--- NOTE | 2019-06-06 06:41 | NUR ---
Patient in room U 3014. I have received report from Florencio HA and had the opportunity to ask questions and assume patient care. Pt is sleeping in room, no signs of distress.
[2019-06-06] MEDS: HYDROchlorothiazide 12.5mg capsule PO SCH (07:24)
[2019-06-06] MEDS: apixaban 5mg tablet PO SCH (07:24)
[2019-06-06] MEDS: pantoprazole 40mg Tablet.DR PO SCH (07:25)
[2019-06-06] MEDS: aspirin 81mg tablet.DR PO SCH (07:25)
[2019-06-06] MEDS: lactobacillus rhamnosus 10,000 MMU CELLS/CAPSULE PO SCH (07:25)
[2019-06-06] MEDS: citalopram 20mg tablet PO SCH (07:25)
[2019-06-06] MEDS: buPROPion SR 150mg tablet PO SCH (07:25)
[2019-06-06] MEDS: diltiazem CD 120mg capsule (once-daily) PO SCH (07:25)
[2019-06-06 07:27] VITALS: BP_SYST 119
[2019-06-06] MEDS: lisinopril 20mg tablet PO SCH (07:27)
[2019-06-06] MEDS: K and/or MAG REPLACEMENT MC SCH (07:36)
[2019-06-06] MEDS ORDERED: CEPH500C5 PO (09:59)
--- NOTE | 2019-06-06 11:30 | NUR ---
[place] Medication Administration: For this medication-pass time frame, all medication were reviewed, dispensed, administered and documented per hospital policy by DILCIA Chu.
--- NOTE | 2019-06-06 11:30 | NUR ---
[place] documentation: I have reviewed and agree with all interventions, assessments performed and documented by DILCIA Chu
--- NOTE | 2019-06-06 11:33 | NUR ---
Patient is stable for discharge per MD orders, all discharge instructions reviewed with patient and all questions answer. New prescriptions called and confirmed with [facility] on [facility] pharmacy. PIV discontinued. cafeteria monitor discontinued. Belongings gathered and sent with pt. Transportation with granddaughter in private vehicle, wheeled to lobby.
[2019-06-06] MEDS ORDERED: lactose-reduced food (Ensure Enlive) - 237ml bottle PO SCH (13:00)
--- NOTE | 2019-06-07 14:18 | NUR ---
Case management DC follow up: spoke to pt via telephone: reports "doing real good" Denies acute/continuous cp, emergent general pain, SOB, resp distress, NV, dizziness, abd pain, POOLE, blurry vision, syncope episodes, abnormal bruising/bleeding. Verbalizes understanding of s/s that warrant 9-11/ER visit for further evaluation. acknowledges need to follow up w/PCP JENIFER Jasmine/ specialist/Dr Mcmahan 1-2 weeks pt to call and schedule; Wound Care 06/08/19 1000. r/t infection to recent surg site/chest/CABG. Verbalizes some understanding of new/current meds, but still was a little confused as to which med was ABX. No one else home at this time, but pt did remember Wound care appt tomorrow and agreed to go over DC instructions w/Granddaughter/Amelie. ABX/Keflex QID 500 mg tabs.taking current Rx as ordered, no ase noted r/t polypharmacy. pt granddaughter CG to pt. pt reports no pain to infection site, no saturation of dressing. pt does not want anyone to change it until appt at Wound care clinic. Pt has [facility], but does not know schedule. continues O2 2LPM, 06/09, uses [facility] went over orthostatic hypotension protocol. pt acknowledges education, agrees to comply. Needs met, questions answered at DC, no further questions at this time. Addendum: 06/07/19 at 1427 by Priscila Valdez RN Case management DC follow up: Asked pt to have granddaughter/CG/Amelie to call if any questions/concerns.
== END 2019-06-06 11:33 | disposition home health service (06) | DRG 862 ==
LOC: ER 11:13 → ED HOLD 15:20 → PCU 3S 19:20
PROVIDERS: ADMIT Family Medicine; ATTEND Family Medicine
DX: T81.41XA Infection following a procedure, superficial incisional surgical site, initial encounter (principal); G93.41 Metabolic encephalopathy; L03.313 Cellulitis of chest wall; K81.0 Acute cholecystitis; T81.31XA Disruption of external operation (surgical) wound, not elsewhere classified, initial encounter; I77.811 Abdominal aortic ectasia; I25.10 Atherosclerotic heart disease of native coronary artery without angina pectoris; J44.9 Chronic obstructive pulmonary disease, unspecified; I10 Essential (primary) hypertension; F32.9 Major depressive disorder, single episode, unspecified; K21.9 Gastro-esophageal reflux disease without esophagitis; E78.5 Hyperlipidemia, unspecified; I48.91 Unspecified atrial fibrillation; Y83.8 Other surgical procedures as the cause of abnormal reaction of the patient, or of later complication, without mention of misadventure at the time of the procedure; E78.00 Pure hypercholesterolemia, unspecified; Z96.642 Presence of left artificial hip joint; Y83.2 Surgical operation with anastomosis, bypass or graft as the cause of abnormal reaction of the patient, or of later complication, without mention of misadventure at the time of the procedure; Z95.1 Presence of aortocoronary bypass graft; Z85.3 Personal history of malignant neoplasm of breast; Z90.13 Acquired absence of bilateral breasts and nipples; Z90.710 Acquired absence of both cervix and uterus; Z88.8 Allergy status to other drugs, medicaments and biological substances; Y92.488 Other paved roadways as the place of occurrence of the external cause; Y92.89 Other specified places as the place of occurrence of the external cause; Z80.3 Family history of malignant neoplasm of breast; Z85.05 Personal history of malignant neoplasm of liver
CPT/HCPCS: 36415; 70450; 71045; 71260; 74177; 76700; 80048; 80053; 80202; 81001; 83605; 83735; 84145; 85025; 85610; 85651; 85730; 86140; 87040; 87070; 87077; 87081; 87186; 93005; 97110; 97116; 97161; 97530; 99285; G0378; J0690; J1644; J3370; J7030; Q9967

== ENCOUNTER 2019-06-08 09:51 | Day surgery (SDC) | payer MEDICARE, OTHER ==
[~2019-06-08 09:51] MED LIST changes: -ATOR10TA PO; +CEPH500C5 PO; +HCTZ25T PO; -LEVO500T2 PO; +METO-411 PO; -METO25TA6 PO; -PRED20TA PO; +SIMV-45 PO
[2019-06-08] MEDS ORDERED: LIDOcaine 2% 5ml jelly ONE (10:20)
== END 2019-06-08 11:19 | disposition home or self-care (01) ==
LOC: WOUND CARE 09:51
PROVIDERS: ATTEND Nurse Practitioner
DX: T81.31XA Disruption of external operation (surgical) wound, not elsewhere classified, initial encounter (principal); E11.22 Type 2 diabetes mellitus with diabetic chronic kidney disease; I13.0 Hypertensive heart and chronic kidney disease with heart failure and stage 1 through stage 4 chronic kidney disease, or unspecified chronic kidney disease; I50.9 Heart failure, unspecified; N18.9 Chronic kidney disease, unspecified; J44.9 Chronic obstructive pulmonary disease, unspecified; M19.90 Unspecified osteoarthritis, unspecified site; I25.10 Atherosclerotic heart disease of native coronary artery without angina pectoris; K21.9 Gastro-esophageal reflux disease without esophagitis; E78.5 Hyperlipidemia, unspecified; G93.41 Metabolic encephalopathy; E78.00 Pure hypercholesterolemia, unspecified; I48.91 Unspecified atrial fibrillation; K80.70 Calculus of gallbladder and bile duct without cholecystitis without obstruction; E66.01 Morbid (severe) obesity due to excess calories; F32.9 Major depressive disorder, single episode, unspecified; Z85.05 Personal history of malignant neoplasm of liver; Z85.3 Personal history of malignant neoplasm of breast; Z87.891 Personal history of nicotine dependence; Z90.710 Acquired absence of both cervix and uterus; Z95.1 Presence of aortocoronary bypass graft; Z96.642 Presence of left artificial hip joint; Z99.81 Dependence on supplemental oxygen; Z79.01 Long term (current) use of anticoagulants; Z79.82 Long term (current) use of aspirin; Z79.899 Other long term (current) drug therapy; Z68.34 Body mass index [BMI] 34.0-34.9, adult; Y83.8 Other surgical procedures as the cause of abnormal reaction of the patient, or of later complication, without mention of misadventure at the time of the procedure; Y92.89 Other specified places as the place of occurrence of the external cause
CPT/HCPCS: 97597

== ENCOUNTER 2019-06-14 10:46 | Day surgery (SDC) | payer MEDICARE, OTHER ==
[2019-06-14] MEDS ORDERED: LIDOcaine 2% 5ml jelly ONE (11:00)
== END 2019-06-14 11:41 | disposition home or self-care (01) ==
LOC: WOUND CARE 10:46
PROVIDERS: ATTEND Nurse Practitioner
DX: T81.31XD Disruption of external operation (surgical) wound, not elsewhere classified, subsequent encounter (principal); L98.492 Non-pressure chronic ulcer of skin of other sites with fat layer exposed; E11.22 Type 2 diabetes mellitus with diabetic chronic kidney disease; I13.0 Hypertensive heart and chronic kidney disease with heart failure and stage 1 through stage 4 chronic kidney disease, or unspecified chronic kidney disease; I50.9 Heart failure, unspecified; N18.9 Chronic kidney disease, unspecified; J44.9 Chronic obstructive pulmonary disease, unspecified; M19.90 Unspecified osteoarthritis, unspecified site; I25.10 Atherosclerotic heart disease of native coronary artery without angina pectoris; K21.9 Gastro-esophageal reflux disease without esophagitis; E78.5 Hyperlipidemia, unspecified; G93.41 Metabolic encephalopathy; E78.00 Pure hypercholesterolemia, unspecified; I48.91 Unspecified atrial fibrillation; K80.70 Calculus of gallbladder and bile duct without cholecystitis without obstruction; E66.01 Morbid (severe) obesity due to excess calories; F32.9 Major depressive disorder, single episode, unspecified; Z85.05 Personal history of malignant neoplasm of liver; Z85.3 Personal history of malignant neoplasm of breast; Z87.891 Personal history of nicotine dependence; Z90.710 Acquired absence of both cervix and uterus; Z95.1 Presence of aortocoronary bypass graft; Z96.642 Presence of left artificial hip joint; Z99.81 Dependence on supplemental oxygen; Z79.01 Long term (current) use of anticoagulants; Z79.82 Long term (current) use of aspirin; Z79.899 Other long term (current) drug therapy; Z68.34 Body mass index [BMI] 34.0-34.9, adult; Y83.8 Other surgical procedures as the cause of abnormal reaction of the patient, or of later complication, without mention of misadventure at the time of the procedure
CPT/HCPCS: 97597

== ENCOUNTER 2019-06-20 10:36 | Day surgery (SDC) | payer MEDICARE, OTHER ==
[2019-06-20] MEDS ORDERED: LIDOcaine 2% 5ml jelly ONE (10:51)
== END 2019-06-20 11:08 | disposition home or self-care (01) ==
LOC: WOUND CARE 10:36
PROVIDERS: ATTEND Nurse Practitioner
DX: T81.31XD Disruption of external operation (surgical) wound, not elsewhere classified, subsequent encounter (principal); L98.492 Non-pressure chronic ulcer of skin of other sites with fat layer exposed; E11.22 Type 2 diabetes mellitus with diabetic chronic kidney disease; I13.0 Hypertensive heart and chronic kidney disease with heart failure and stage 1 through stage 4 chronic kidney disease, or unspecified chronic kidney disease; I50.9 Heart failure, unspecified; N18.9 Chronic kidney disease, unspecified; J44.9 Chronic obstructive pulmonary disease, unspecified; M19.90 Unspecified osteoarthritis, unspecified site; I25.10 Atherosclerotic heart disease of native coronary artery without angina pectoris; K21.9 Gastro-esophageal reflux disease without esophagitis; E78.5 Hyperlipidemia, unspecified; G93.41 Metabolic encephalopathy; E78.00 Pure hypercholesterolemia, unspecified; I48.91 Unspecified atrial fibrillation; K80.70 Calculus of gallbladder and bile duct without cholecystitis without obstruction; E66.01 Morbid (severe) obesity due to excess calories; F32.9 Major depressive disorder, single episode, unspecified; Z85.05 Personal history of malignant neoplasm of liver; Z85.3 Personal history of malignant neoplasm of breast; Z87.891 Personal history of nicotine dependence; Z90.710 Acquired absence of both cervix and uterus; Z95.1 Presence of aortocoronary bypass graft; Z96.642 Presence of left artificial hip joint; Z99.81 Dependence on supplemental oxygen; Z79.01 Long term (current) use of anticoagulants; Z79.82 Long term (current) use of aspirin; Z79.899 Other long term (current) drug therapy; Z68.34 Body mass index [BMI] 34.0-34.9, adult; Y83.8 Other surgical procedures as the cause of abnormal reaction of the patient, or of later complication, without mention of misadventure at the time of the procedure
CPT/HCPCS: 97597

== ENCOUNTER 2019-06-27 10:55 | Outpatient (CLI) | payer MEDICARE, OTHER ==
[2019-06-27] MEDS ORDERED: LIDOcaine 2% 5ml jelly ONE (11:07)
== END 2019-06-27 11:17 | disposition home or self-care (01) ==
LOC: WOUND CARE 10:55 → EDSTATUS 11:00 → WOUND CARE 11:17
PROVIDERS: ATTEND Nurse Practitioner
DX: T81.31XD Disruption of external operation (surgical) wound, not elsewhere classified, subsequent encounter (principal); L98.492 Non-pressure chronic ulcer of skin of other sites with fat layer exposed; E11.22 Type 2 diabetes mellitus with diabetic chronic kidney disease; I13.0 Hypertensive heart and chronic kidney disease with heart failure and stage 1 through stage 4 chronic kidney disease, or unspecified chronic kidney disease; I50.9 Heart failure, unspecified; N18.9 Chronic kidney disease, unspecified; J44.9 Chronic obstructive pulmonary disease, unspecified; M19.90 Unspecified osteoarthritis, unspecified site; I25.10 Atherosclerotic heart disease of native coronary artery without angina pectoris; K21.9 Gastro-esophageal reflux disease without esophagitis; E78.5 Hyperlipidemia, unspecified; G93.41 Metabolic encephalopathy; E78.00 Pure hypercholesterolemia, unspecified; I48.91 Unspecified atrial fibrillation; K80.70 Calculus of gallbladder and bile duct without cholecystitis without obstruction; E66.01 Morbid (severe) obesity due to excess calories; F32.9 Major depressive disorder, single episode, unspecified; Z85.05 Personal history of malignant neoplasm of liver; Z85.3 Personal history of malignant neoplasm of breast; Z87.891 Personal history of nicotine dependence; Z90.710 Acquired absence of both cervix and uterus; Z95.1 Presence of aortocoronary bypass graft; Z96.642 Presence of left artificial hip joint; Z99.81 Dependence on supplemental oxygen; Z79.01 Long term (current) use of anticoagulants; Z79.82 Long term (current) use of aspirin; Z79.899 Other long term (current) drug therapy; Z68.34 Body mass index [BMI] 34.0-34.9, adult; Y83.8 Other surgical procedures as the cause of abnormal reaction of the patient, or of later complication, without mention of misadventure at the time of the procedure
CPT/HCPCS: G0463

== ENCOUNTER → 2019-10-19 | Outpatient (CLI) | payer MEDICARE, OTHER | END | disposition home or self-care (01) | LOC: LAB 14:17 | PROVIDERS: ATTEND Internal Medicine Cardiovascular Disease | DX: R79.89 Other specified abnormal findings of blood chemistry (principal); Z79.899 Other long term (current) drug therapy | CPT/HCPCS: 36415; 84484 ==

== ENCOUNTER 2023-09-28 11:08 | Outpatient (CLI) | payer BC, OTHER ==
[~2023-09-28 11:08] MED LIST changes: +BUPR-561 PO; -BUPR150T6 PO; -CEPH500C5 PO; -HCTZ25T PO; +HYDR25TA5 PO; -OMEP40CA13 PO; +OMEP40CA21 PO
== END 2023-09-28 23:59 | disposition home or self-care (01) ==
LOC: CARD DIAG 11:08
PROVIDERS: ATTEND Family Medicine
DX: I08.3 Combined rheumatic disorders of mitral, aortic and tricuspid valves (principal); R01.1 Cardiac murmur, unspecified
CPT/HCPCS: 93306